=== PATIENT | female | born 1940 | race Caucasian/White ===

== ENCOUNTER → 2021-03-14 | Outpatient (CLI) | payer MEDICARE ==
[~2021-03-14] MED LIST: AMLO1TAB24 PO; ATOR1TAB21 PO; BETA250027 PO; BETACAROTENE PO; CARV12.5 PO; D31000TA2 PO; FURO40TA2 PO; GABA-282 PO; GLIP5TAB8 PO; ISOS1TAB35 PO; LOSA100T50 PO; NATE120T4 PO; PRESCAP PO; SPIR-10 PO; TRUL0.5I SQ; XARE20TA PO
--- NOTE | 2021-03-14 09:41 | REP ---
INDICATION: SPLENOMEGALY / RENAL INSUFFANCY. COMPARISON: None. TECHNIQUE: Transabdominal ultrasound FINDINGS: Multiple ultrasonographic images of the liver show the hepatic parenchymal echo pattern to be somewhat coarsened but without evidence of a mass. The maximal hepatic dimension at the midclavicular line is 20 cm. There is no intrahepatic ductal dilatation. The common bile duct measures 21 mm. The imaged portion of the pancreas shows ductal dilatation measuring 5 mm. The spleen measures 11 x 11.8 x5.5 cm. The volumetric index calculation is 713.9. This is increased.. The right kidney measures 10.3 x 4.1 x 3.7 cm. The renal cortical echotexture is within normal limits. Corticomedullary differentiation is preserved. There is no hydronephrosis. There are no masses. The left kidney measures 11.1 x 4.5 x 4.4 cm. The renal cortical echotexture is within normal limits. Corticomedullary differentiation is preserved. There is no hydronephrosis. There are 2 complex structure seen in the left kidney 1 is laterally measuring 2 cm and the other appears exophytic arising from the lower pole measuring 1.5 cm. The imaged portion of the abdominal aorta is within normal limits. There is no evidence of free fluid. IMPRESSION: 1. There is hepatosplenomegaly as described above. 2. There is common bile duct dilatation and pancreatic duct dilatation the etiology of which is uncertain. Follow-up is necessary. An obstructing pancreatic head mass cannot be ruled. 3. Complex appearing left renal lesions. Neoplasm cannot be ruled out. Further evaluation is recommended. <Electronically signed by Merritt Claros > 03/14/21 0920
== END ==
LOC: M RAD 08:43
PROVIDERS: ATTEND Internal Medicine Medical Oncology
DX: R94.4 Abnormal results of kidney function studies (principal)

== ENCOUNTER → 2021-03-21 | Outpatient (CLI) | payer MEDICARE ==
[~2021-03-21] MED LIST changes: +GASTROGRAFIN SOLUTION 30ML (Q9963) As Ordered ONE; +LOSA100T45 PO; -LOSA100T50 PO; +MAGN400T2 PO
== END ==
LOC: M RAD 13:03
PROVIDERS: ATTEND Internal Medicine Medical Oncology
DX: K74.69 Other cirrhosis of liver (principal); N28.89 Other specified disorders of kidney and ureter; E16.8 Other specified disorders of pancreatic internal secretion; K43.9 Ventral hernia without obstruction or gangrene
CPT/HCPCS: 74176; Q9963

== ENCOUNTER → 2021-05-09 | Outpatient (CLI) | payer MEDICARE ==
[~2021-05-09] MED LIST changes: -GASTROGRAFIN SOLUTION 30ML (Q9963) As Ordered ONE
[2021-05-09 14:00] LABS: CALCIUM LEVEL 9.5 MG/DL (8.8-10.2); CREATININE FOR GFR 1.54 MG/DL (0.55-1.30); GLOMERULAR FILTRATION RATE 34.6 (>39); POTASSIUM SERUM 5.5 MEQ/L (3.5-5.1)
== END ==
LOC: M LAB 11:47
PROVIDERS: ATTEND Physician Assistant
DX: N28.89 Other specified disorders of kidney and ureter (principal)

== ENCOUNTER → 2021-05-09 | Outpatient (CLI) | payer MEDICARE ==
[~2021-05-09] MED LIST changes: +LIDOCAINE 1% MDV 20ML VIAL As Ordered ONE
[2021-05-09 14:08] LABS: BASO % 0.3 % (0.0-1.0); EOS # 0.2 10^3/uL (0.0-0.5); EOS % 2.6 % (0.0-3.0); HEMATOCRIT 36.4 % (36.0-47.0); HEMOGLOBIN 11.5 g/dl (12.0-15.5); LYMPH % 17.8 % (24.0-44.0); MEAN CORPUSCULAR HEMOGLOBIN 31.9 pg (27.0-33.0); MEAN CORPUSCULAR HGB CONC 31.6 g/dl (32.0-36.5); MEAN CORPUSCULAR VOLUME 100.8 fl (80.0-96.0); MONO # 0.5 10^3/uL (0.0-0.8); MONO % 7.7 % (2.0-8.0); NEUTROPHILS # 4.2 10^3/uL (1.5-8.5); NEUTROPHILS % 71.3 % (36.0-66.0); PLATELET COUNT, AUTOMATED 116 10^3/uL (150-450); RED BLOOD COUNT 3.61 10^6/uL (4.00-5.40); WHITE BLOOD COUNT 5.9 10^3/uL (4.0-10.0)
[2021-05-09 14:25] LABS: INR 1.02; PROTHROMBIN TIME 13.8 SECONDS (12.7-14.5)
[2021-05-09 17:25] VITALS: BP 148/70
== END ==
LOC: M IRPRO 11:41
PROVIDERS: ATTEND Internal Medicine Hematology & Oncology
DX: D64.9 Anemia, unspecified (principal); Z79.899 Other long term (current) drug therapy

== ENCOUNTER → 2021-05-18 | Outpatient (CLI) | payer MEDICARE ==
[~2021-05-18] MED LIST changes: +ISOVUE-370 76% 100ML VIAL As Ordered ONE; -LIDOCAINE 1% MDV 20ML VIAL As Ordered ONE
== END ==
LOC: M RAD 13:31
PROVIDERS: ATTEND Physician Assistant
DX: N28.89 Other specified disorders of kidney and ureter (principal); N28.1 Cyst of kidney, acquired
CPT/HCPCS: 74160; Q9967

== ENCOUNTER → 2021-09-05 | Outpatient (REF) | payer MEDICARE ==
[~2021-09-05] MED LIST changes: -D31000TA2 PO; -ISOVUE-370 76% 100ML VIAL As Ordered ONE; +VITA100093 PO
[2021-09-05 17:50] LABS: PERCENT SATURATION 16.3 % (13.2-45.0)
== END ==
LOC: M LAB REF 16:57
PROVIDERS: ATTEND Internal Medicine Nephrology
DX: E61.1 Iron deficiency (principal); D63.1 Anemia in chronic kidney disease; N18.31 Chronic kidney disease, stage 3a; R30.0 Dysuria

== ENCOUNTER → 2021-09-21 | Outpatient (CLI) | payer MEDICARE | LOC: M RAD 08:20 | PROVIDERS: ATTEND Internal Medicine Gastroenterology | DX: K74.60 Unspecified cirrhosis of liver (principal) ==

== ENCOUNTER → 2021-10-28 | Outpatient (CLI) | payer MEDICARE | LOC: M LABSMTC 11:08 | PROVIDERS: ATTEND Anesthesiology | DX: Z01.818 Encounter for other preprocedural examination (principal); Z11.52 Encounter for screening for COVID-19 ==

== ENCOUNTER 2021-11-02 12:33 | Day surgery (SDC) | payer MEDICARE ==
[~2021-11-02] VITALS: Ht 154.9 cm; Wt 93.9 kg
[~2021-11-02 12:33] MED LIST changes: +NS 1,000 ML IV ONE
[2021-11-02] MEDS ORDERED: LIDOCAINE 2% MDV 20ML VIAL As Ordered ONE (14:44)
[2021-11-02] MEDS ORDERED: fentaNYL 100 MCG/2 ML INJECTION As Ordered ONE (14:44)
[2021-11-02] MEDS ORDERED: propofoL 200 MG/20 ML VIAL As Ordered ONE (14:50)
[2021-11-02 15:17] VITALS: BP 147/70
== END 2021-11-02 15:30 | disposition home or self-care (01) ==
LOC: M OPP 12:33
PROVIDERS: ATTEND Internal Medicine Gastroenterology
DX: K74.60 Unspecified cirrhosis of liver (principal); K29.70 Gastritis, unspecified, without bleeding; I25.10 Atherosclerotic heart disease of native coronary artery without angina pectoris; I10 Essential (primary) hypertension; E78.5 Hyperlipidemia, unspecified; E11.40 Type 2 diabetes mellitus with diabetic neuropathy, unspecified; M19.90 Unspecified osteoarthritis, unspecified site; Z95.0 Presence of cardiac pacemaker; Z95.1 Presence of aortocoronary bypass graft; Z79.01 Long term (current) use of anticoagulants; Z79.84 Long term (current) use of oral hypoglycemic drugs; Z79.899 Other long term (current) drug therapy; Z82.49 Family history of ischemic heart disease and other diseases of the circulatory system; Z83.3 Family history of diabetes mellitus
CPT/HCPCS: 43239; 88305; J3010

== ENCOUNTER → 2021-11-13 | Outpatient (CLI) | payer MEDICARE ==
[~2021-11-13] MED LIST changes: +ISOVUE-370 76% 100ML VIAL As Ordered ONE; -NS 1,000 ML IV ONE
== END ==
LOC: M RAD 09:07
PROVIDERS: ATTEND Physician Assistant
DX: D41.02 Neoplasm of uncertain behavior of left kidney (principal)
CPT/HCPCS: 74170; Q9967

== ENCOUNTER → 2022-06-17 | Outpatient (CLI) | payer MEDICARE | LOC: M RAD 14:03 | PROVIDERS: ATTEND Physician Assistant | DX: N28.89 Other specified disorders of kidney and ureter (principal) | CPT/HCPCS: 74170; Q9967 ==

== ENCOUNTER → 2022-12-25 | Outpatient (CLI) | payer MEDICARE ==
[~2022-12-25] MED LIST changes: -ISOVUE-370 76% 100ML VIAL As Ordered ONE; -LOSA100T45 PO; +LOSA100T46 PO
== END ==
LOC: M RAD 11:00
PROVIDERS: ATTEND Physician Assistant
DX: N28.89 Other specified disorders of kidney and ureter (principal)

== ENCOUNTER 2023-04-17 13:16 | Inpatient (IN) | payer MEDICARE ==
[~2023-04-17] VITALS: Ht 154.9 cm; Wt 96.7 kg
[~2023-04-17 13:16] MED LIST changes: +GLIP5TAB17 PO; -GLIP5TAB8 PO
[2023-04-17] MEDS ORDERED: HUMA75IN2 SQ (13:31)
[2023-04-17] MEDS ORDERED: POTA-298 PO (13:31)
[2023-04-17] MEDS ORDERED: NS 500 ML IV ONE (14:25)
[2023-04-17 14:37] LABS: BASO % 0.2 % (0.0-1.0); EOS # 0.1 10^3/uL (0.0-0.5); EOS % 1.7 % (0.0-3.0); HEMOGLOBIN 8.6 g/dl (12.0-15.5); LYMPH # 0.5 10^3/uL (1.5-5.0); MEAN CORPUSCULAR HEMOGLOBIN 30.1 pg (27.0-33.0); MEAN CORPUSCULAR HGB CONC 29.7 g/dl (32.0-36.5); MEAN CORPUSCULAR VOLUME 101.4 fl (80.0-96.0); MONO # 0.6 10^3/uL (0.0-0.8); MONO % 10.5 % (2.0-8.0); PLATELET COUNT, AUTOMATED 106 10^3/uL (150-450); RED BLOOD COUNT 2.86 10^6/uL (4.00-5.40); WHITE BLOOD COUNT 5.2 10^3/uL (4.0-10.0)
[2023-04-17 15:21] LABS: BILIRUBIN,DIRECT 0.4 MG/DL (<0.4); BILIRUBIN,TOTAL 0.7 MG/DL (0.3-1.2); CK-MB VALUE MASS 1.1 NG/ML (<3.6); CREATININE FOR GFR 5.07 MG/DL (0.55-1.30); GLOMERULAR FILTRATION RATE 8.7 (>32); MAGNESIUM LEVEL 2.3 MG/DL (1.8-2.4); MB/CK RELATIVE INDEX 1.71 (< OR =4); POTASSIUM SERUM 6.2 MMOL/L (3.5-5.1); TOTAL PROTEIN 6.2 G/DL (5.7-8.2)
[2023-04-17] MEDS ORDERED: MORPHINE 2 MG/ML 1ML VIAL IV ONE (15:30)
[2023-04-17 15:32] LABS: MAU/CREAT RATIO 7.4 MCG/MG (0.0-30.0)
[2023-04-17] MEDS ORDERED: DEXTROSE 50% 50ML VIAL IV ONE (16:05)
[2023-04-17] MEDS ORDERED: HumuLIN R (REGULAR) INSULIN (NovoLIN R) **100U/ML** PER UNIT SC ONE (16:05)
[2023-04-17] MEDS ORDERED: PATIROMER SORBITEX CALCIUM 8.4 GM POWDER PACKET (VELTASSA) PO ONE (16:05)
[2023-04-17] MEDS ORDERED: NS 1,000 ML IV ONE (16:15)
[2023-04-17] MEDS ORDERED: MED REC IN PROGRESS XX SCH (16:35)
[2023-04-17] MEDS ORDERED: FUROSEMIDE 100MG/10ML VIAL IV ONE (17:10)
[2023-04-17] MEDS ORDERED: MOM 30ML SUSPENSION UDC PO PRN (17:10)
[2023-04-17] MEDS: INSULIN LISPRO (NovoLOG) PER UNIT SC SCH ×2 (17:30→20:56)
[2023-04-17] MEDS ORDERED: GLUCOSE 4GM CHEW TABLET PO PRN (17:40)
[2023-04-17] MEDS ORDERED: DEXTROSE 50% 50ML SYRINGE IV PRN (17:40)
[2023-04-17] MEDS ORDERED: GLUCAGON INJ 1MG VIAL SC PRN (17:40)
[2023-04-17 18:45] LABS: COMPLEMENT C3 121.2 MG/DL (90.0-170.0); COMPLEMENT C4 22.4 MG/DL (12-36)
[2023-04-17 19:20] LABS: INR 1.33
[2023-04-17] MEDS ORDERED: LOPE1CAP5 PO (19:23)
[2023-04-17] MEDS ORDERED: JARD1TAB PO (19:23)
[2023-04-17] MEDS ORDERED: ASPI-226 PO (19:23)
[2023-04-17] MEDS ORDERED: LISI10TA22 PO (19:23)
[2023-04-17] MEDS ORDERED: BUME2TAB3 PO (19:23)
[2023-04-17] MEDS ORDERED: HYDR-3910 PO (19:23)
[2023-04-17] MEDS ORDERED: PANT40TA29 PO (19:23)
[2023-04-17] MEDS ORDERED: CLOP75TA2 PO (19:23)
[2023-04-17] MEDS ORDERED: ONDA4TAB6 PO (19:23)
[2023-04-17] MEDS ORDERED: SUCR1TAB56 PO (19:23)
[2023-04-17] MEDS ORDERED: [UNRECOGNIZED DRUG - CODE] PO (19:23)
[2023-04-17] MEDS ORDERED: PRESCAP PO (19:26)
[2023-04-17] MEDS ORDERED: ATOR1TAB21 PO (19:28)
[2023-04-17] MEDS ORDERED: FURO40TA2 PO (19:29)
[2023-04-17] MEDS ORDERED: GABA-282 PO (19:31)
[2023-04-17] MEDS ORDERED: GLIP5TAB17 PO (19:32)
[2023-04-17] MEDS ORDERED: ISOS1TAB35 PO (19:33)
[2023-04-17] MEDS ORDERED: MAGN400T2 PO (19:35)
[2023-04-17] MEDS ORDERED: NATE120T4 PO (19:36)
[2023-04-17] MEDS ORDERED: HOME MED LIST COMPLETE! XX SCH (19:40)
[2023-04-17] MEDS ORDERED: GABAPENTIN 300 MG CAP PO SCH (21:00)
[2023-04-17] MEDS ORDERED: CARVedilol 12.5 MG TAB PO SCH (21:00)
[2023-04-17] MEDS ORDERED: PANTOPRAZOLE 40MG TAB (PROTONIX) PO PRN (21:45)
[2023-04-17] MEDS ORDERED: ONDANSETRON 4MG ORAL DISINTEGRATING TAB PO PRN (21:45)
[2023-04-18] VITALS (7 sets, daily range): BP systolic 92–128; BP diastolic 44–68; TEMP 96.6–98.8; O2SAT 95–99
[2023-04-18] MEDS: DOCUSATE SODIUM 100MG CAPSULE PO SCH ×3 (00:25→20:39)
[2023-04-18] MEDS: HEPARIN SOD (PORCINE) 5000UNITS/ML 1ML VIAL/SYRINGE SC SCH ×2 (00:26→06:29)
[2023-04-18] MEDS: **hydrALAZINE HCL** 25 MG TAB PO SCH ×2 (00:30→08:06)
[2023-04-18] MEDS: ACETAMINOPHEN TAB 650MG DOSE (2X325MG) PO PRN (03:19)
[2023-04-18 03:24] LABS: ALBUMIN 2.7 G/DL (3.2-5.2); CALCIUM LEVEL 8.6 MG/DL (8.3-10.6); CREATININE FOR GFR 4.73 MG/DL (0.55-1.30); GLOMERULAR FILTRATION RATE 9.4 (>32); PHOSPHORUS LEVEL 5.7 MG/DL (2.4-5.1); POTASSIUM SERUM 5.5 MMOL/L (3.5-5.1)
[2023-04-18] MEDS ORDERED: PATIROMER SORBITEX CALCIUM 8.4 GM POWDER PACKET (VELTASSA) PO ONE ×3 (05:00→10:00)
[2023-04-18] MEDS ORDERED: SUCRALFATE 1 GM TAB PO SCH (07:30)
[2023-04-18] MEDS: INSULIN LISPRO (NovoLOG) PER UNIT SC SCH ×4 (07:30→20:40)
[2023-04-18 07:32] LABS: HEMATOCRIT 25.4 % (36.0-47.0); HEMOGLOBIN 7.5 g/dl (12.0-15.5); MEAN CORPUSCULAR HGB CONC 29.5 g/dl (32.0-36.5); MEAN CORPUSCULAR VOLUME 101.6 fl (80.0-96.0); WHITE BLOOD COUNT 2.4 10^3/uL (4.0-10.0)
[2023-04-18 07:56] LABS: ALBUMIN 2.6 G/DL (3.2-5.2); BLOOD UREA NITROGEN 57 MG/DL (9-23); CALCIUM LEVEL 8.5 MG/DL (8.3-10.6); CARBON DIOXIDE LEVEL 30 MMOL/L (20-31); CHLORIDE LEVEL 107 MMOL/L (98-107); CREATININE FOR GFR 4.74 MG/DL (0.55-1.30); GLOMERULAR FILTRATION RATE 9.4 (>32); GLUCOSE, FASTING 65 MG/DL (74-106); MAGNESIUM LEVEL 2.2 MG/DL (1.8-2.4); PHOSPHORUS LEVEL 6.2 MG/DL (2.4-5.1); POTASSIUM SERUM 5.6 MMOL/L (3.5-5.1); SODIUM LEVEL 142 MMOL/L (136-145)
[2023-04-18] MEDS: ISOSORBIDE MON. (IMDUR) 30MG XR TAB PO SCH (08:06)
[2023-04-18 08:26] LABS: PLATELET COUNT, AUTOMATED 70 10^3/uL (150-450)
[2023-04-18] MEDS ORDERED: FUROSEMIDE 40 MG TAB PO SCH (09:00)
[2023-04-18] MEDS ORDERED: BUMETANIDE 1 MG TAB PO SCH (09:00)
[2023-04-18] MEDS: ASPIRIN 81MG ENTERIC TABLET PO SCH (09:26)
[2023-04-18] MEDS: MAGNESIUM OXIDE 400MG TAB (MAG-OX) PO SCH (09:27)
[2023-04-18] MEDS: CLOPIDOGREL 75 MG TAB PO SCH (09:27)
[2023-04-18] MEDS: ATORVASTATIN 20 MG TAB PO SCH (09:27)
[2023-04-18] MEDS: VITAMIN D 1,000 INTERNATIONAL UNITS TABLET PO SCH (09:27)
[2023-04-18] MEDS ORDERED: metOLazone 2.5 MG TAB PO ONE (10:00)
[2023-04-18 11:06] LABS: ALKALINE PHOSPHATASE 59 U/L (46-116); ALT/SGPT < 9 U/L (7.0-40); AST/SGOT 16 U/L (<34); BILIRUBIN,DIRECT 0.3 MG/DL (<0.4); BILIRUBIN,TOTAL 0.5 MG/DL (0.3-1.2); FOLATE > 24.0 NG/ML (>5.4); IRON (FE) 78 UG/DL (50-170); LDH LACTATE DEHYDROGENASE 179 U/L (120-246); PERCENT SATURATION 27.5 % (13.2-45.0); TOTAL IRON BINDING CAPACITY 284 UG/DL (250-425); TOTAL PROTEIN 5.5 G/DL (5.7-8.2); VITAMIN B12 LEVEL 596 PG/ML (211-911)
[2023-04-18] MEDS: FUROSEMIDE 100MG/10ML VIAL IV SCH ×2 (11:35→16:52)
[2023-04-18] MEDS: LIDOCAINE 5% (LIDODERM) PATCH TD SCH (12:09)
[2023-04-18] MEDS: DICLOFENAC EPOLAMINE 1.3% PATCH TOP SCH (14:10)
[2023-04-18] MEDS: **hydrALAZINE** 10 MG TAB PO SCH ×2 (15:39→20:24)
[2023-04-18 16:33] LABS: HEMATOCRIT 27.2 % (36.0-47.0); HEMOGLOBIN 8.1 g/dl (12.0-15.5); MEAN CORPUSCULAR HEMOGLOBIN 30.3 pg (27.0-33.0); MEAN CORPUSCULAR HGB CONC 29.8 g/dl (32.0-36.5); MEAN CORPUSCULAR VOLUME 101.9 fl (80.0-96.0); RED BLOOD COUNT 2.67 10^6/uL (4.00-5.40); WHITE BLOOD COUNT 3.3 10^3/uL (4.0-10.0)
[2023-04-18 16:40] LABS: PLTBLUE- EDTA FREE CALC 69 K/mm3 (172-450); PLTBLUE- EDTA FREE MACHINE 63 10^3/uL (172-450)
[2023-04-18 16:42] LABS: PLATELET COUNT, AUTOMATED 79 10^3/uL (150-450)
[2023-04-18 18:42] LABS: CREATININE FOR GFR 4.45 MG/DL (0.55-1.30); GLOMERULAR FILTRATION RATE 10.1 (>32)
[2023-04-18] MEDS: GABAPENTIN 300 MG CAP PO SCH (20:38)
[2023-04-19] MEDS: DICLOFENAC EPOLAMINE 1.3% PATCH TOP SCH ×3 (00:03→20:07)
[2023-04-19 03:44] VITALS: BP 125/56; TEMP 98.4; O2SAT 93
[2023-04-19 05:44] LABS: ALBUMIN 2.6 G/DL (3.2-5.2); CALCIUM LEVEL 8.7 MG/DL (8.3-10.6); CREATININE FOR GFR 4.16 MG/DL (0.55-1.30); GLOMERULAR FILTRATION RATE 10.9 (>32); MAGNESIUM LEVEL 2.1 MG/DL (1.8-2.4); POTASSIUM SERUM 4.8 MMOL/L (3.5-5.1)
[2023-04-19 07:26] VITALS: BP 115/56; TEMP 98.2; O2SAT 97
[2023-04-19] MEDS: INSULIN LISPRO (NovoLOG) PER UNIT SC SCH ×4 (07:30→20:02)
[2023-04-19 07:57] LABS: BASO % 0.5 % (0.0-1.0); EOS # 0.1 10^3/uL (0.0-0.5); EOS % 2.2 % (0.0-3.0); HEMATOCRIT 26.8 % (36.0-47.0); LYMPH # 0.5 10^3/uL (1.5-5.0); LYMPH % 13.5 % (24.0-44.0); MEAN CORPUSCULAR HEMOGLOBIN 30.1 pg (27.0-33.0); MEAN CORPUSCULAR HGB CONC 29.9 g/dl (32.0-36.5); MEAN CORPUSCULAR VOLUME 100.8 fl (80.0-96.0); MONO # 0.6 10^3/uL (0.0-0.8); MONO % 15.6 % (2.0-8.0); NEUTROPHILS # 2.5 10^3/uL (1.5-8.5); NEUTROPHILS % 67.9 % (36.0-66.0); RED BLOOD COUNT 2.66 10^6/uL (4.00-5.40); WHITE BLOOD COUNT 3.7 10^3/uL (4.0-10.0)
[2023-04-19 08:03] LABS: PLATELET COUNT, AUTOMATED 89 10^3/uL (150-450)
[2023-04-19] MEDS: FUROSEMIDE 100MG/10ML VIAL IV SCH ×2 (09:28→17:24)
[2023-04-19] MEDS: ISOSORBIDE MON. (IMDUR) 30MG XR TAB PO SCH (09:29)
[2023-04-19] MEDS: ATORVASTATIN 20 MG TAB PO SCH (09:29)
[2023-04-19] MEDS: ASPIRIN 81MG ENTERIC TABLET PO SCH (09:29)
[2023-04-19] MEDS: DOCUSATE SODIUM 100MG CAPSULE PO SCH ×2 (09:29→20:01)
[2023-04-19] MEDS: CLOPIDOGREL 75 MG TAB PO SCH (09:29)
[2023-04-19] MEDS: cefTRIAXone SOD 1 GM in D5W MINI-BAG PLUS 50 ML IV SCH (09:29)
[2023-04-19] MEDS: MAGNESIUM OXIDE 400MG TAB (MAG-OX) PO SCH (09:29)
[2023-04-19] MEDS: VITAMIN D 1,000 INTERNATIONAL UNITS TABLET PO SCH (09:29)
[2023-04-19] MEDS: LIDOCAINE 5% (LIDODERM) PATCH TD SCH (09:30)
[2023-04-19 11:45] VITALS: BP 120/58; TEMP 98.7; O2SAT 95
[2023-04-19 15:57] VITALS: BP 122/59; TEMP 97.8; O2SAT 94
[2023-04-19 19:35] VITALS: BP 135/61; TEMP 98.4; O2SAT 99
[2023-04-19] MEDS: GABAPENTIN 300 MG CAP PO SCH (20:01)
[2023-04-19] MEDS: ACETAMINOPHEN TAB 650MG DOSE (2X325MG) PO PRN (20:06)
[2023-04-19 23:45] VITALS: BP 102/51; TEMP 97.2; O2SAT 97
[2023-04-20 04:00] VITALS: BP 108/53; TEMP 97.2; O2SAT 97
[2023-04-20 05:46] LABS: BASO % 0.6 % (0.0-1.0); EOS # 0.1 10^3/uL (0.0-0.5); EOS % 2.5 % (0.0-3.0); HEMATOCRIT 26.1 % (36.0-47.0); HEMOGLOBIN 7.9 g/dl (12.0-15.5); LYMPH # 0.6 10^3/uL (1.5-5.0); LYMPH % 15.2 % (24.0-44.0); MEAN CORPUSCULAR HEMOGLOBIN 30.4 pg (27.0-33.0); MEAN CORPUSCULAR HGB CONC 30.3 g/dl (32.0-36.5); MEAN CORPUSCULAR VOLUME 100.4 fl (80.0-96.0); MONO # 0.5 10^3/uL (0.0-0.8); NEUTROPHILS # 2.4 10^3/uL (1.5-8.5); NEUTROPHILS % 66.4 % (36.0-66.0); WHITE BLOOD COUNT 3.6 10^3/uL (4.0-10.0)
[2023-04-20 05:47] LABS: PLATELET COUNT, AUTOMATED 84 10^3/uL (150-450)
[2023-04-20 06:12] LABS: ALBUMIN 2.6 G/DL (3.2-5.2); CALCIUM LEVEL 8.7 MG/DL (8.3-10.6); CREATININE FOR GFR 3.66 MG/DL (0.55-1.30); GLOMERULAR FILTRATION RATE 12.7 (>32); MAGNESIUM LEVEL 2.1 MG/DL (1.8-2.4); PHOSPHORUS LEVEL 5.6 MG/DL (2.4-5.1); POTASSIUM SERUM 4.3 MMOL/L (3.5-5.1)
[2023-04-20] MEDS: INSULIN LISPRO (NovoLOG) PER UNIT SC SCH ×4 (07:28→20:36)
[2023-04-20 08:42] VITALS: BP 107/50; TEMP 97.9; O2SAT 95
[2023-04-20] MEDS: DOCUSATE SODIUM 100MG CAPSULE PO SCH ×2 (09:00→20:34)
[2023-04-20] MEDS: ISOSORBIDE MON. (IMDUR) 30MG XR TAB PO SCH (09:00)
[2023-04-20] MEDS: cefTRIAXone SOD 1 GM in D5W MINI-BAG PLUS 50 ML IV SCH (09:23)
[2023-04-20] MEDS: DICLOFENAC EPOLAMINE 1.3% PATCH TOP SCH ×2 (09:23→20:37)
[2023-04-20] MEDS: LIDOCAINE 5% (LIDODERM) PATCH TD SCH (09:23)
[2023-04-20] MEDS: FUROSEMIDE 100MG/10ML VIAL IV SCH (09:23)
[2023-04-20] MEDS: ASPIRIN 81MG ENTERIC TABLET PO SCH (09:24)
[2023-04-20] MEDS: MAGNESIUM OXIDE 400MG TAB (MAG-OX) PO SCH (09:24)
[2023-04-20] MEDS: VITAMIN D 1,000 INTERNATIONAL UNITS TABLET PO SCH (09:24)
[2023-04-20] MEDS: CLOPIDOGREL 75 MG TAB PO SCH (09:24)
[2023-04-20] MEDS: ATORVASTATIN 20 MG TAB PO SCH (09:24)
[2023-04-20 12:40] VITALS: BP 115/58; TEMP 98.2; O2SAT 97
[2023-04-20 16:27] VITALS: BP 121/61; TEMP 97.8; O2SAT 93
[2023-04-20 20:00] VITALS: BP 128/60; TEMP 96.9; O2SAT 99
[2023-04-20] MEDS: GABAPENTIN 300 MG CAP PO SCH (20:34)
[2023-04-20] MEDS: ACETAMINOPHEN TAB 650MG DOSE (2X325MG) PO PRN (22:45)
[2023-04-20 23:44] VITALS: BP 112/50; TEMP 97.9; O2SAT 95
[2023-04-21] MEDS ORDERED: SODIUM CHLORIDE 0.9% NASAL GEL 15GM (AYR) PRN (01:50)
[2023-04-21 04:10] VITALS: BP 133/60; TEMP 97.2; O2SAT 94
[2023-04-21 06:33] LABS: BASO % 0.3 % (0.0-1.0); EOS # 0.1 10^3/uL (0.0-0.5); EOS % 2.4 % (0.0-3.0); HEMATOCRIT 26.8 % (36.0-47.0); LYMPH # 0.5 10^3/uL (1.5-5.0); LYMPH % 14.8 % (24.0-44.0); MEAN CORPUSCULAR HGB CONC 29.9 g/dl (32.0-36.5); MEAN CORPUSCULAR VOLUME 100.4 fl (80.0-96.0); MONO # 0.6 10^3/uL (0.0-0.8); MONO % 17.2 % (2.0-8.0); NEUTROPHILS # 2.2 10^3/uL (1.5-8.5); RED BLOOD COUNT 2.67 10^6/uL (4.00-5.40); WHITE BLOOD COUNT 3.3 10^3/uL (4.0-10.0)
[2023-04-21 06:35] LABS: PLATELET COUNT, AUTOMATED 75 10^3/uL (150-450)
[2023-04-21 06:49] LABS: ALBUMIN 2.6 G/DL (3.2-5.2); CALCIUM LEVEL 8.7 MG/DL (8.3-10.6); CREATININE FOR GFR 2.67 MG/DL (0.55-1.30); GLOMERULAR FILTRATION RATE 18.2 (>32); MAGNESIUM LEVEL 1.8 MG/DL (1.8-2.4); PHOSPHORUS LEVEL 4.3 MG/DL (2.4-5.1); POTASSIUM SERUM 3.8 MMOL/L (3.5-5.1)
[2023-04-21] MEDS: INSULIN LISPRO (NovoLOG) PER UNIT SC SCH ×2 (07:30→11:57)
[2023-04-21 07:49] VITALS: BP 140/60; TEMP 97.1; O2SAT 95
[2023-04-21] MEDS: DOCUSATE SODIUM 100MG CAPSULE PO SCH ×2 (09:00→09:14)
[2023-04-21] MEDS ORDERED: CEFDINIR 300 MG CAP (OMNICEF) PO SCH (09:00)
[2023-04-21] MEDS ORDERED: TORSEMIDE (DEMADEX) 50 MG PER 1/2 TAB PO SCH (09:00)
[2023-04-21] MEDS: ASPIRIN 81MG ENTERIC TABLET PO SCH (09:14)
[2023-04-21] MEDS: CLOPIDOGREL 75 MG TAB PO SCH (09:14)
[2023-04-21] MEDS: VITAMIN D 1,000 INTERNATIONAL UNITS TABLET PO SCH (09:14)
[2023-04-21] MEDS: MAGNESIUM OXIDE 400MG TAB (MAG-OX) PO SCH (09:14)
[2023-04-21] MEDS: ATORVASTATIN 20 MG TAB PO SCH (09:14)
[2023-04-21 09:15] VITALS: BP 130/60
[2023-04-21] MEDS: LIDOCAINE 5% (LIDODERM) PATCH TD SCH (09:15)
[2023-04-21] MEDS: ISOSORBIDE MON. (IMDUR) 30MG XR TAB PO SCH (09:15)
[2023-04-21] MEDS: DICLOFENAC EPOLAMINE 1.3% PATCH TOP SCH (09:16)
[2023-04-21] MEDS ORDERED: GABA-282 PO (11:13)
[2023-04-21] MEDS ORDERED: TORS100T PO ×2 (11:13→12:05)
[2023-04-21] MEDS ORDERED: CEFD300CAP PO ×2 (11:14→12:00)
[2023-04-21 11:40] VITALS: BP 113/54; TEMP 97.2; O2SAT 98
== END 2023-04-21 14:53 | disposition home or self-care (01) | DRG 682 ==
LOC: M ED 13:16 → M ED INP 17:09 → M PCU 23:44
PROVIDERS: ADMIT Student in an Organized Health Care Education/Training Program; ATTEND Student in an Organized Health Care Education/Training Program
PROC: B246ZZZ Ultrasonography of Right and Left Heart (ICD-10-PCS; principal; 2023-04-18)
DX: N17.9 Acute kidney failure, unspecified (principal); I21.A1 Myocardial infarction type 2; I50.23 Acute on chronic systolic (congestive) heart failure; I13.0 Hypertensive heart and chronic kidney disease with heart failure and stage 1 through stage 4 chronic kidney disease, or unspecified chronic kidney disease; J96.11 Chronic respiratory failure with hypoxia; D61.818 Other pancytopenia; N39.0 Urinary tract infection, site not specified; I25.10 Atherosclerotic heart disease of native coronary artery without angina pectoris; E11.22 Type 2 diabetes mellitus with diabetic chronic kidney disease; N18.32 Chronic kidney disease, stage 3b; E78.5 Hyperlipidemia, unspecified; K21.9 Gastro-esophageal reflux disease without esophagitis; I48.91 Unspecified atrial fibrillation; E87.5 Hyperkalemia; E11.40 Type 2 diabetes mellitus with diabetic neuropathy, unspecified; Z66 Do not resuscitate; D69.6 Thrombocytopenia, unspecified; K74.60 Unspecified cirrhosis of liver; N28.1 Cyst of kidney, acquired; I25.5 Ischemic cardiomyopathy; I34.0 Nonrheumatic mitral (valve) insufficiency; B96.89 Other specified bacterial agents as the cause of diseases classified elsewhere; K75.81 Nonalcoholic steatohepatitis (NASH); I27.20 Pulmonary hypertension, unspecified; Z79.82 Long term (current) use of aspirin; Z95.0 Presence of cardiac pacemaker; Z90.49 Acquired absence of other specified parts of digestive tract; Z79.4 Long term (current) use of insulin; Z79.899 Other long term (current) drug therapy; Z79.02 Long term (current) use of antithrombotics/antiplatelets; Z95.5 Presence of coronary angioplasty implant and graft

== ENCOUNTER → 2023-05-09 | Outpatient (REF) | payer MEDICARE ==
[~2023-05-09] MED LIST changes: +ASPI-226 PO; +BUME2TAB3 PO; +CEFD300CAP PO; +CLOP75TA2 PO; +HUMA75IN2 SQ; +HYDR-3910 PO; +JARD1TAB PO; +LISI10TA22 PO; +LOPE1CAP5 PO; +ONDA4TAB6 PO; +PANT40TA29 PO; +POTA-298 PO; +SUCR1TAB56 PO; +TORS100T PO; +[UNRECOGNIZED DRUG - CODE] PO
[2023-05-09 18:53] LABS: PERCENT SATURATION 11.6 % (13.2-45.0)
[2023-05-09 18:55] LABS: FERRITIN 81.3 NG/ML (7.3-270.7)
== END ==
LOC: M LAB REF 17:42
PROVIDERS: ATTEND Internal Medicine Nephrology
DX: E61.1 Iron deficiency (principal)

== ENCOUNTER 2023-05-23 12:20 | Outpatient (CLI) | payer MEDICARE ==
[~2023-05-23] VITALS: Ht 154.9 cm; Wt 87.3 kg
[~2023-05-23 12:20] MED LIST changes: +ALBUTEROL SULFATE 2.5MG/0.5ML INH NEB SOLN INH PRN; +EPINEPHrine INJ 1 MG/ML 1ML AMP IM PRN; +diphenhydrAMINE 50MG/ML VIAL IV PRN; +methylPREDNISolone 125MG 2ML VIAL IV PRN
[2023-05-23 12:30] VITALS: BP 176/73; O2SAT 95
[2023-05-23] MEDS ORDERED: NS 1,000 ML IV SCH (13:30)
[2023-05-23] MEDS ORDERED: IRON SUCROSE 300 MG in NS 250 ML OVER 90 MIN. IV ONE (13:30)
[2023-05-23 15:05] VITALS: BP 142/68; O2SAT 98
== END 2023-05-23 15:05 ==
LOC: M INFU 12:20
PROVIDERS: ATTEND Internal Medicine Nephrology
DX: E61.1 Iron deficiency (principal)
CPT/HCPCS: 96365; 96366; J1756

== ENCOUNTER 2023-06-06 12:30 | Outpatient (CLI) | payer MEDICARE ==
[~2023-06-06] VITALS: Ht 154.9 cm; Wt 57.3 kg
[2023-06-06 12:30] VITALS: BP 172/79; O2SAT 98
[~2023-06-06 12:30] MED LIST changes: -HYDR-3910 PO; +HYDR25TA87 PO; +NS 1,000 ML IV SCH
[2023-06-06] MEDS: IRON SUCROSE 300 MG in NS 250 ML OVER 90 MIN. IV ONE (12:45)
[2023-06-06 14:25] VITALS: BP 148/62; O2SAT 97
== END 2023-06-06 14:25 ==
LOC: M INFU 12:30
PROVIDERS: ATTEND Internal Medicine Nephrology
DX: E61.1 Iron deficiency (principal)
CPT/HCPCS: 96365; 96366; J1756

== ENCOUNTER 2023-06-20 13:30 | Outpatient (CLI) | payer MEDICARE ==
[~2023-06-20] VITALS: Ht 154.9 cm; Wt 87.3 kg
[2023-06-20 13:33] VITALS: BP 181/78; O2SAT 96
[2023-06-20] MEDS: IRON SUCROSE 300 MG in NS 250 ML OVER 90 MIN. IV ONE (13:36)
[2023-06-20 15:00] VITALS: BP 150/64; O2SAT 97
[2023-06-20 15:40] VITALS: BP 160/80; O2SAT 96
== END 2023-06-20 15:40 ==
LOC: M INFU 13:30
PROVIDERS: ATTEND Internal Medicine Nephrology
DX: E61.1 Iron deficiency (principal)
CPT/HCPCS: 96365; J1756

== ENCOUNTER → 2024-03-15 | Outpatient (CLI) | payer MEDICARE ==
[~2024-03-15] MED LIST changes: -ALBUTEROL SULFATE 2.5MG/0.5ML INH NEB SOLN INH PRN; -EPINEPHrine INJ 1 MG/ML 1ML AMP IM PRN; +GABA-1172 PO; -GABA-282 PO; -NS 1,000 ML IV SCH; +ONDA-282 PO; -ONDA4TAB6 PO; -diphenhydrAMINE 50MG/ML VIAL IV PRN; -methylPREDNISolone 125MG 2ML VIAL IV PRN
== END ==
LOC: M RAD 11:22
PROVIDERS: ATTEND Urology
DX: N28.1 Cyst of kidney, acquired (principal)

== ENCOUNTER → 2024-04-20 | Outpatient (CLI) | payer MEDICARE | LOC: M SOG 07:35 | PROVIDERS: ATTEND Physician Assistant | DX: M54.2 Cervicalgia (principal); M47.892 Other spondylosis, cervical region ==

== ENCOUNTER → 2025-03-21 | Outpatient (CLI) | payer MEDICARE ==
[2025-03-21 11:20] VITALS: TEMP 98
[2025-03-21 13:45] VITALS: BP 116/58; O2SAT 99
== END ==
LOC: M IRPRO 11:05
PROVIDERS: ATTEND Internal Medicine Cardiovascular Disease
DX: J90 Pleural effusion, not elsewhere classified (principal)